=== PATIENT | female | born 1970 | race Caucasian/White ===

== ENCOUNTER → 2016-12-29 | Outpatient (REF) | payer BC | LOC: M SFHCWAGY 11:09 | PROVIDERS: ATTEND Nurse Practitioner Women's Health | DX: Z12.4 Encounter for screening for malignant neoplasm of cervix (principal); R87.610 Atypical squamous cells of undetermined significance on cytologic smear of cervix (ASC-US) ==

== ENCOUNTER → 2016-12-29 | Outpatient (CLI) | payer BC ==
--- NOTE | 2016-12-29 10:20 | REPMRS ---
Patient History The patient states she had a clinical breast exam in 12/2016. No known family history of cancer. Digital Woman Screen Mammo: December 29, 2016 - Exam #: [id number] Bilateral CC and MLO view(s) were taken. Technologist: Rachel Johnson, Technologist Prior study comparison: November 23, 2015, digital woman screen mammo performed at [facility]. November 19, 2014, digital woman screen mammo performed at [facility] to [facility]. FINDINGS: There are scattered fibroglandular densities. There has been no change in the appearance of the mammogram from the prior studies. There is a mild amount of residual fibroglandular tissue which is fairly symmetric. There is no interval development of dominant mass, architectural distortion, or clustered microcalcification suggestive of malignancy. ASSESSMENT: BI-RADS/ACR category 1 mammogram. Negative. Recommendation Routine screening mammogram in 1 year (for women over age 40). This mammogram was interpreted with the aid of an FDA-approved computer-aided dectection system. Electronically Signed By: Alec Leblanc MD 12/29/16 [id number]
== END ==
LOC: M WHC 08:08
PROVIDERS: ATTEND Nurse Practitioner Women's Health
DX: Z12.31 Encounter for screening mammogram for malignant neoplasm of breast (principal)

== ENCOUNTER → 2018-02-06 | Outpatient (REF) | payer BC | LOC: M SFHCWAGY 10:06 | DX: Z12.4 Encounter for screening for malignant neoplasm of cervix (principal) | CPT/HCPCS: G0123 ==

== ENCOUNTER → 2018-02-06 | Outpatient (CLI) | payer BC | LOC: M WHC 09:42 | DX: Z12.31 Encounter for screening mammogram for malignant neoplasm of breast (principal) ==

== ENCOUNTER → 2018-12-23 | Outpatient (REF) | payer BC | LOC: M SFHCCLAY 16:44 | PROVIDERS: ATTEND Nurse Practitioner Family | DX: R50.9 Fever, unspecified (principal) ==

== ENCOUNTER 2019-01-15 20:43 | Emergency (ER) | payer BC ==
[~2019-01-15] VITALS: Ht 167.6 cm; Wt 70.5 kg
[2019-01-15 21:44] LABS: BASO # 0.1 10^3/uL (0.0-0.2); BASO % 0.3 % (0.0-1.0); EOS # 0.3 10^3/uL (0.0-0.50); HEMATOCRIT 39.2 % (36.0-47.0); HEMOGLOBIN 13.1 g/dl (12.0-15.5); LYMPH # 1.8 10^3/uL (1.5-4.5); LYMPH % 7.3 % (24.0-44.0); MEAN CORPUSCULAR HEMOGLOBIN 30.3 pg (27.0-33.0); MEAN CORPUSCULAR HGB CONC 33.4 g/dl (32.0-36.5); MEAN CORPUSCULAR VOLUME 90.7 fl (80.0-96.0); MONO # 0.8 10^3/uL (0.0-0.8); MONO % 3.5 % (0.0-5.0); NEUTROPHILS # 20.9 10^3/uL (1.8-7.7); NEUTROPHILS % 87.2 % (36.0-66.0); PLATELET COUNT, AUTOMATED 279 10^3/uL (150-450); RED BLOOD COUNT 4.32 10^6/uL (4.00-5.40)
[2019-01-15 21:54] LABS: APPEARANCE, URINE HAZY (CLEAR); BACTERIA, URINE AUTO NEGATIVE (NEGATIVE); BILIRUBIN, URINE AUTO NEGATIVE (NEGATIVE); BLOOD, URINE BLOOD NEGATIVE (NEGATIVE); COLOR, URINE YELLOW (YELLOW); GLUCOSE, URINE (UA) AUTO NEGATIVE (NEGATIVE); KETONE, URINE AUTO NEGATIVE (NEGATIVE); LEUKOCYTE ESTERASE, URINE AUTO NEGATIVE (NEGATIVE); MUCUS, URINE SMALL (NEGATIVE); NITRITE, URINE AUTO NEGATIVE (NEGATIVE); PROTEIN, URINE AUTO NEGATIVE (NEGATIVE); RBC, URINE AUTO 2 /HPF (0-3); SPECIFIC GRAVITY URINE AUTO 1.015 (1.002-1.035); SQUAMOUS EPITHELIAL CELL UR AU 2 /HPF (0-6); UROBILINOGEN, URINE AUTO 0.2 mg/dL (0.0-2.0); WBC, URINE AUTO 1 /HPF (0-3)
[2019-01-15 22:10] LABS: ERYTHROCYTE SEDIMENTATION RATE 19 mm/hr (0-30)
[2019-01-15 22:11] LABS: ALBUMIN 3.4 GM/DL (3.2-5.2); ALT/SGPT 42 U/L (12-78); BILIRUBIN,DIRECT 0.1 MG/DL (0.0-0.2); BILIRUBIN,TOTAL 0.7 MG/DL (0.2-1.0); BLOOD UREA NITROGEN 11 MG/DL (7-18); C REACTIVE PROTEIN QUANTITATIV 8.85 MG/DL (0.00-0.30); CARBON DIOXIDE LEVEL 26 MEQ/L (21-32); CHLORIDE LEVEL 108 MEQ/L (98-107); CREATININE FOR GFR 0.89 MG/DL (0.55-1.30); GLOMERULAR FILTRATION RATE > 60.0 (>51); GLUCOSE, FASTING 95 MG/DL (70-100); POTASSIUM SERUM 3.8 MEQ/L (3.5-5.1); SODIUM LEVEL 141 MEQ/L (136-145); TOTAL PROTEIN 7.4 GM/DL (6.4-8.2)
[2019-01-15 22:20] LABS: INFLUENZA A AMPLIFICATION NEGATIVE (NEGATIVE); INFLUENZA B AMPLIFICATION NEGATIVE (NEGATIVE)
[2019-01-16] MEDS ORDERED: PROHANCE 279.3MG/ML 15ML VIAL (A9576) As Ordered ONE (00:19)
--- NOTE | 2019-01-16 00:54 | REP ---
Clinical: Systemic inflammatory response syndrome . Comparison: None . Technique: PA and lateral. Findings: The mediastinum and cardiac silhouette are normal. The lung ross are clear and without acute consolidation, effusion, or pneumothorax. The skeletal structures are intact and normal. Impression: 1. No acute cardiopulmonary process. Electronically Signed by Lowell Alston MD 01/16/2019 12:46 A
--- NOTE | 2019-01-16 01:20 | REPVR ---
EXAM: MR Thoracic Spine Without and With Contrast EXAM DATE/TIME: 01/16/2019 12:41 AM CLINICAL HISTORY: 48 years old, female; Abnormal findings; Abnormal lab test; Elevated wbc; Additional info: Back pain, elev wbc/crp/esr, eval for discitis TECHNIQUE: Multiplanar MRI of the thoracic spine was performed utilizing a variety of sequences prior to and following the uncomplicated administration of intravenous contrast material. CONTRAST: Contrast Material: 14 ml of prohance; Contrast Route: iv COMPARISON: No relevant prior studies available. FINDINGS: Normal thoracic kyphosis. Alignment anatomic. T7, T8 and T9 vertebral body hemangiomata. Bone marrow signal otherwise normal. No MR evidence of acute fracture, dislocation or subluxation. Vertebral body heights maintained. No abnormal signal within the visualized spinal cord. No fluid collection or soft tissue mass. No abnormal enhancement. Mild multilevel spondylosis. Shallow left parasagittal disc protrusion at T6-T7. Shallow right paracentral disc protrusion at T7-T8. Shallow left parasagittal disc protrusion at T9-T10. No significant spinal canal or neural foraminal stenosis. IMPRESSION: 1. No MR evidence of acute osteomyelitis discitis. 2. Mild multilevel spondylosis and degenerative disc disease. 3. Additional findings, as above. Electronically signed by: Darin Gonzalez On 01/16/2019 01:19:36 AM
--- NOTE | 2019-01-16 01:23 | REPVR ---
EXAM: MR Lumbar Spine Without and With Contrast. EXAM DATE/TIME: 01/16/2019 12:41 AM CLINICAL HISTORY: 48 years old, female; Abnormal findings; Abnormal lab test; Elevated wbc; Additional info: Back pain, elev wbc/crp/esr, eval for discitis TECHNIQUE: Multiplanar MRI of the lumbar spine was performed utilizing a variety of sequences prior to and following the uncomplicated administration of intravenous contrast material. CONTRAST: Contrast Material: 14 ml of prohance; Contrast Route: IV COMPARISON: No relevant prior studies available. FINDINGS: Normal lumbar lordosis. Alignment anatomic. L3 and L4 vertebral body hemangiomata. Bone marrow signal otherwise normal. No MR evidence of acute fracture, dislocation or subluxation. Vertebral body heights maintained. Conus terminates at approximately the L1 level. No abnormal signal within the visualized spinal cord. No fluid collection or soft tissue mass. No abnormal enhancement. Intervertebral disc spaces preserved. No significant spinal canal or neural foraminal stenosis. IMPRESSION: 1. No MR evidence of acute osteomyelitis discitis. 2. Additional findings, as above. Electronically signed by: Darin Gonzalez On 01/16/2019 01:23:06 AM
--- NOTE | 2019-01-16 01:30 | REPVR ---
EXAM: MR Cervical Spine Without and With Contrast EXAM DATE/TIME: 01/16/2019 12:41 AM CLINICAL HISTORY: 48 years old, female; Abnormal findings; Abnormal lab test; Other: Elevated wbc; Additional info: Back pain, elev wbc/crp/esr, eval for discitis TECHNIQUE: Multiplanar MRI of the cervical spine was performed utilizing a variety of sequences prior to and following the uncomplicated administration of intravenous contrast material. CONTRAST: Contrast Material: 14 ml of PROHANCE; Contrast Route: IV COMPARISON: No relevant prior studies available. FINDINGS: Slight reversal of the normal cervical lordosis. Alignment anatomic. Bone marrow signal normal. No MR evidence of acute fracture, dislocation or subluxation. Vertebral body heights maintained. No abnormal signal within the visualized spinal cord. No fluid collection or soft tissue mass. No abnormal enhancement. Mild multilevel spondylosis and degenerative disc disease, most pronounced at C5-C6, where there is a shallow disc ridge complex, mildly effacing the ventral thecal sac. No significant spinal canal or neural foraminal stenosis. IMPRESSION: 1. No MR evidence of acute osteomyelitis discitis. 2. Additional findings, as above. Electronically signed by: Darin Gonzalez On 01/16/2019 01:29:59 AM
[2019-01-16 02:01] VITALS: BP 128/82
== END 2019-01-16 02:03 | disposition home or self-care (01) ==
LOC: M ED 20:43
DX: D72.829 Elevated white blood cell count, unspecified (principal)
CPT/HCPCS: 36415; 71046; 72156; 72157; 72158; 80048; 80076; 81001; 83605; 85025; 85652; 86140; 87040; 87086; 87502; 93041; 94760; 99285; A9576

== ENCOUNTER → 2019-01-15 | Outpatient (REF) | payer BC ==
[2019-01-15 18:19] LABS: ALBUMIN 3.8 GM/DL (3.2-5.2); ALT/SGPT 31 U/L (12-78); BLOOD UREA NITROGEN 11 MG/DL (7-18); CALCIUM LEVEL 8.9 MG/DL (8.5-10.1); CARBON DIOXIDE LEVEL 26 MEQ/L (21-32); CHLORIDE LEVEL 103 MEQ/L (98-107); CREATININE FOR GFR 0.87 MG/DL (0.55-1.30); GLOMERULAR FILTRATION RATE > 60.0 (>51); GLUCOSE, FASTING 95 MG/DL (70-100); POTASSIUM SERUM 3.7 MEQ/L (3.5-5.1); SODIUM LEVEL 137 MEQ/L (136-145); TOTAL PROTEIN 7.8 GM/DL (6.4-8.2)
[2019-01-15 18:48] LABS: HEMATOCRIT 40.2 % (36.0-47.0); HEMOGLOBIN 13.3 g/dl (12.0-15.5); MEAN CORPUSCULAR HEMOGLOBIN 29.9 pg (27.0-33.0); MEAN CORPUSCULAR HGB CONC 33.1 g/dl (32.0-36.5); MEAN CORPUSCULAR VOLUME 90.3 fl (80.0-96.0); PLATELET COUNT, AUTOMATED 300 10^3/uL (150-450); RED BLOOD COUNT 4.45 10^6/uL (4.00-5.40)
[2019-01-15 19:23] LABS: WHITE BLOOD COUNT 30.6 10^3/uL (4.0-10.0)
[2019-01-15 19:51] LABS: LYMPHOCYTES 8 % (16-52); MONOCYTES 7 % (0-8); NEUTROPHILS 78 % (35-75); PLATELET ESTIMATE NORMAL (NORMAL)
== END ==
LOC: M SFHCCLAY 11:32
PROVIDERS: ATTEND Nurse Practitioner Family
DX: R11.0 Nausea (principal)

== ENCOUNTER → 2019-01-17 | Outpatient (CLI) | payer BC ==
[~2019-01-17] MED LIST: GASTROGRAFIN SOLUTION 30ML (Q9963) As Ordered ONE; ISOVUE-370 76% 100ML VIAL (Q9967) As Ordered ONE
--- NOTE | 2019-01-17 17:09 | REP ---
CT ABDOMEN AND PELVIS WITH ORAL AND IV CONTRAST: TECHNIQUE: Axial contrast enhanced images from the lung bases to the pubic symphysis using 100 mL Isovue 370 intravenous contrast material with multiplanar reformations. In the visualized lung bases, there are tiny bilateral pleural effusions with some minimal fibrotic changes. The liver, gallbladder, spleen, adrenals, pancreas and kidneys are unremarkable. There is no hydronephrosis bilaterally. There is no abdominal aortic aneurysm. There is no adenopathy. There is no free air or free fluid. No bowel thickening is seen. There is no evidence of appendicitis. In the pelvis, there is a dominant follicle of the left ovary which measures 1.8 cm in diameter. No other pelvic mass is seen. Urinary bladder is mildly distended and grossly unremarkable. No anterior abdominal wall defect is seen. The sacroiliac joints appear fused. IMPRESSION: Tiny bilateral pleural effusions. No free air or free fluid in the abdomen. No adenopathy or bowel inflammation. There is a dominant follicle of the left ovary 1.8 cm in diameter. There are degenerative changes of the spine and the sacroiliac joints are fused. Electronically Signed by Alec Leblanc MD 01/20/2019 12:12 P
== END ==
LOC: M RAD 14:24
PROVIDERS: ATTEND Family Medicine
DX: D72.825 Bandemia (principal); R19.7 Diarrhea, unspecified; R11.0 Nausea; J90 Pleural effusion, not elsewhere classified
CPT/HCPCS: 74177; Q9963; Q9967

== ENCOUNTER → 2019-01-21 | Outpatient (REF) | payer BC ==
[2019-01-21 11:35] LABS: BASO # 0.1 10^3/uL (0.0-0.2); BASO % 0.8 % (0.0-1.0); EOS # 0.3 10^3/uL (0.0-0.50); EOS % 3.9 % (0.0-3.0); HEMATOCRIT 39.9 % (36.0-47.0); LYMPH # 1.7 10^3/uL (1.5-4.5); LYMPH % 20.2 % (24.0-44.0); MEAN CORPUSCULAR HEMOGLOBIN 29.7 pg (27.0-33.0); MEAN CORPUSCULAR HGB CONC 32.6 g/dl (32.0-36.5); MEAN CORPUSCULAR VOLUME 91.3 fl (80.0-96.0); MONO # 0.6 10^3/uL (0.0-0.8); MONO % 7.2 % (0.0-5.0); NEUTROPHILS # 5.6 10^3/uL (1.8-7.7); NEUTROPHILS % 67.5 % (36.0-66.0); PLATELET COUNT, AUTOMATED 307 10^3/uL (150-450); RED BLOOD COUNT 4.37 10^6/uL (4.00-5.40); WHITE BLOOD COUNT 8.3 10^3/uL (4.0-10.0)
[2019-01-21 11:37] LABS: BLOOD UREA NITROGEN 9 MG/DL (7-18); CALCIUM LEVEL 8.8 MG/DL (8.5-10.1); CARBON DIOXIDE LEVEL 27 MEQ/L (21-32); CHLORIDE LEVEL 105 MEQ/L (98-107); CREATININE FOR GFR 0.85 MG/DL (0.55-1.30); GLOMERULAR FILTRATION RATE > 60.0 (>51); GLUCOSE, FASTING 94 MG/DL (70-100); POTASSIUM SERUM 3.9 MEQ/L (3.5-5.1); SODIUM LEVEL 139 MEQ/L (136-145)
== END ==
LOC: M SFHCCLAY 07:33
PROVIDERS: ATTEND Nurse Practitioner Family
DX: D72.825 Bandemia (principal)

== ENCOUNTER → 2019-02-18 | Outpatient (CLI) | payer BC ==
--- NOTE | 2019-02-19 01:58 | REP ---
Clinical: Bronchitis . Comparison: None . Technique: PA and lateral. Findings: The mediastinum and cardiac silhouette are normal. The lung ross are clear and without acute consolidation, effusion, or pneumothorax. The skeletal structures are intact and normal. Impression: 1. No acute cardiopulmonary process.
== END ==
LOC: M CLY 14:20
PROVIDERS: ATTEND Family Medicine
DX: Z87.09 Personal history of other diseases of the respiratory system (principal)

== ENCOUNTER → 2019-03-10 | Outpatient (CLI) | payer BC ==
--- NOTE | 2019-03-10 10:31 | REPMRS ---
Patient History The patient states she had a clinical breast exam in 02/2019. No known family history of cancer. 3D TOMOSYNTHESIS WAS PERFORMED. Digital Woman Screen Mammo: March 10, 2019 - Exam #: [id number] Bilateral CC and MLO view(s) were taken. Technologist: Rachel Johnson, Technologist Prior study comparison: February 06, 2018, digital woman screen mammo performed at [facility]. December 29, 2016, digital woman screen mammo performed at [facility]. FINDINGS: The breast tissue is heterogeneously dense. This may lower the sensitivity of mammography. There has been no change in the appearance of the mammogram from the prior studies. There is a moderate amount of residual fibroglandular tissue which is fairly symmetric. There is no interval development of dominant mass, areas of architectural distortion, or clustered microcalcification typical of malignancy. Assessment: BI-RADS/ACR category 1 mammogram. Negative Mammogram. Recommendation Routine screening mammogram in 1 year (for women over age 40). This mammogram was interpreted with the aid of an FDA-approved computer-aided dectection system. Electronically Signed By: Alec Leblanc MD 03/10/19 [id number]
== END ==
LOC: M WHC 09:18
PROVIDERS: ATTEND Nurse Practitioner Women's Health
DX: Z12.31 Encounter for screening mammogram for malignant neoplasm of breast (principal)

== ENCOUNTER → 2021-03-23 | Outpatient (CLI) | payer BC ==
--- NOTE | 2021-03-23 09:29 | REPMRS ---
Patient History The patient states she has not had a clinical breast exam in over a year. No known family history of cancer. No Hormone Replacement Therapy Patient states no breast complaints today. Patient has signed MRS History Sheet. Digital Woman Screen Mammo: March 23, 2021 - Exam #: [id number] Bilateral CC and MLO view(s) were taken. Technologist: Rachel Johnson, Technologist Prior study comparison: March 10, 2019, bilateral digital woman screen mammo performed at [facility]. February 06, 2018, digital woman screen mammo performed at [facility]. FINDINGS: There are scattered fibroglandular densities. Screening. Digital screening (2D) mammography was performed bilaterally in the CC and MLO projections. Additionally, breast tomosynthesis (3D mammography) was performed bilaterally in the CC and MLO projections. Todays exam was compared to the prior exams. By history, the patient has no complaints of a palpable breast abnormality or other significant breast complaints. The breasts are unchanged in size and shape. There are no lisseth-soft tissue densities or spiculated masses. There is no internal architectural distortion. There are no suspicious lisseth-calcific clusters. Skin thickening or nipple retraction is not present. IMPRESSION: BI-RADS Category 2- Benign Findings. There is no evidence of malignant alteration of the breasts. Followup examination recommended in one year. The Volpara volumetric breast density category is B, there are scattered areas of fibroglandular density. [facility] FDA approved [facility] aided detection system for mammography. The lifetime Tyrer-Cuzick score is 10.3% Negative x-ray reports should not delay surgical consultation if a dominant or clinically suspicious mass is present. Not all breast cancers can be identified by mammography. Therefore, we recommend that you continue to perform regular breast self-examination and physical examination and then promptly contact your physician of any concerns or changes. Adenosis and dense breasts may obscure an underlying neoplasm. Assessment: BI-RADS/ACR category 2 mammogram. Benign Findings. Recommendation Routine screening mammogram of both breasts in 1 year. Electronically Signed By: Leoncio Marcos DO 03/23/21 [id number]
== END ==
LOC: M WHC 06:19
PROVIDERS: ATTEND Nurse Practitioner Women's Health
DX: Z12.31 Encounter for screening mammogram for malignant neoplasm of breast (principal)

== ENCOUNTER → 2022-05-10 | Outpatient (REF) | payer BC ==
[2022-05-10 11:36] LABS: BASO # 0.1 10^3/uL (0.0-0.2); BASO % 0.7 % (0.0-1.0); EOS # 0.2 10^3/uL (0.0-0.5); HEMATOCRIT 42.5 % (36.0-47.0); HEMOGLOBIN 13.9 g/dl (12.0-15.5); LYMPH # 2.4 10^3/uL (1.5-5.0); LYMPH % 36.3 % (24.0-44.0); MEAN CORPUSCULAR HEMOGLOBIN 29.3 pg (27.0-33.0); MEAN CORPUSCULAR HGB CONC 32.7 g/dl (32.0-36.5); MEAN CORPUSCULAR VOLUME 89.5 fl (80.0-96.0); MONO # 0.5 10^3/uL (0.0-0.8); MONO % 7.5 % (2.0-8.0); NEUTROPHILS # 3.5 10^3/uL (1.5-8.5); NEUTROPHILS % 52.4 % (36.0-66.0); PLATELET COUNT, AUTOMATED 275 10^3/uL (150-450); RED BLOOD COUNT 4.75 10^6/uL (4.00-5.40); WHITE BLOOD COUNT 6.7 10^3/uL (4.0-10.0)
[2022-05-10 12:08] LABS: ALBUMIN 3.5 GM/DL (3.2-5.2); ALT/SGPT 21 U/L (12-78); BILIRUBIN,TOTAL 0.6 MG/DL (0.2-1.0); BLOOD UREA NITROGEN 12 MG/DL (7-18); CARBON DIOXIDE LEVEL 31 MEQ/L (21-32); CHLORIDE LEVEL 106 MEQ/L (98-107); CHOLESTEROL LEVEL 250 MG/DL (<200); CHOLESTEROL RISK RATIO 5.681 (<5); CREATININE FOR GFR 0.82 MG/DL (0.55-1.30); GLOMERULAR FILTRATION RATE > 60.0 (>51); GLUCOSE, FASTING 100 MG/DL (70-100); HDL CHOLESTEROL 44 MG/DL (>40); LDL CHOLESTEROL 172 MG/DL (<100); NON-HDL-C 206 MG/DL; POTASSIUM SERUM 4.4 MEQ/L (3.5-5.1); SODIUM LEVEL 141 MEQ/L (136-145); TOTAL PROTEIN 7.3 GM/DL (6.4-8.2); TRIGLYCERIDES LEVEL 171 MG/DL (<150)
[2022-05-12 13:54] LABS: ALBUMIN 4.02 GM/DL (3.29-5.55); ALPHA-1-GLOBULIN % 3.9 % (2.9-4.9); ALPHA-1-GLOBULINS 0.28 GM/DL (0.17-0.41); ALPHA-2-GLOBULINS 0.78 GM/DL (0.42-0.99); ALPHA-2-GLOBULINS % 10.7 % (7.1-11.8); BETA-1-GLOBULINS 0.39 GM/DL (0.28-0.60); BETA-1-GLOBULINS % 5.4 % (4.7-7.2); BETA-2-GLOBULINS % 5.5 % (3.2-6.5); GAMMA GLOBULIN % 19.5 % (11.1-18.8); GAMMA GLOBULINS 1.42 GM/DL (0.65-1.58)
[2022-05-12 13:55] LABS: TOTAL PROTEIN 7.3 GM/DL (6.4-8.2)
== END ==
LOC: M SFHCCLAY 07:13
PROVIDERS: ATTEND Family Medicine
DX: Z00.00 Encounter for general adult medical examination without abnormal findings (principal); Z12.11 Encounter for screening for malignant neoplasm of colon; D89.2 Hypergammaglobulinemia, unspecified; R09.82 Postnasal drip; M67.40 Ganglion, unspecified site; J02.9 Acute pharyngitis, unspecified

== ENCOUNTER → 2022-05-31 | Outpatient (REF) | payer BC | LOC: M PLALAB 14:14 | PROVIDERS: ATTEND Advanced Practice Midwife | DX: Z53.9 Procedure and treatment not carried out, unspecified reason (principal) ==

== ENCOUNTER → 2022-06-05 | Outpatient (REF) | payer BC | LOC: M SFHCWAGY 17:10 | PROVIDERS: ATTEND Advanced Practice Midwife | DX: Z12.4 Encounter for screening for malignant neoplasm of cervix (principal); R87.610 Atypical squamous cells of undetermined significance on cytologic smear of cervix (ASC-US) | CPT/HCPCS: 87624; G0123 ==

== ENCOUNTER → 2022-06-05 | Outpatient (CLI) | payer BC | LOC: M WHC 13:22 | PROVIDERS: ATTEND Advanced Practice Midwife | DX: Z12.31 Encounter for screening mammogram for malignant neoplasm of breast (principal) ==

== ENCOUNTER → 2022-10-10 | Outpatient (CLI) | payer BC | LOC: M PLAIMG 09:08 | PROVIDERS: ATTEND Family Medicine | DX: R09.89 Other specified symptoms and signs involving the circulatory and respiratory systems (principal); Z82.49 Family history of ischemic heart disease and other diseases of the circulatory system ==

== ENCOUNTER → 2022-11-17 | Outpatient (REF) | payer BC ==
[2022-11-17 19:10] LABS: CORTISOL AM 5.4 UG/DL (4.3-22.4)
[2022-11-17 19:14] LABS: ESTRADIOL < 19.0 PG/ML; FOLLICLE STIMULATING HORMONE 53.2 mIU/ML; THYROID STIMULATING HORMONE 0.996 uIU/ML (0.55-4.78)
[2022-11-17 19:15] LABS: FREE T4 1.06 NG/DL (0.89-1.76); LUTEINIZING HORMONE 22.7 mIU/ML; PROGESTERONE 0.21 NG/ML
[2022-11-21 20:07] LABS: ESTRONE SERUM 21 pg/mL (.); SEX HORMONE BINDING GLOBULIN 79.9 nmol/L (17.3-125.0); TESTOSTERONE FREE (DIRECT) 0.7 pg/mL (0.0-4.2)
== END ==
LOC: M LABDRAWC 17:10
PROVIDERS: ATTEND Obstetrics & Gynecology
DX: N95.1 Menopausal and female climacteric states (principal)

== ENCOUNTER → 2023-04-04 | Outpatient (REF) | payer BC ==
[2023-04-04 12:15] LABS: PROGESTERONE < 0.21 NG/ML
[2023-04-04 12:16] LABS: FOLLICLE STIMULATING HORMONE 30.3 mIU/ML; LUTEINIZING HORMONE 21.8 mIU/ML
[2023-04-04 12:17] LABS: ESTRADIOL 46.8 PG/ML
[2023-04-05 18:08] LABS: TESTOSTERONE FREE (DIRECT) 2.7 pg/mL (0.0-4.2)
== END ==
LOC: M LABDRAWC 11:05
PROVIDERS: ATTEND Obstetrics & Gynecology
DX: N95.1 Menopausal and female climacteric states (principal); E34.9 Endocrine disorder, unspecified; F52.0 Hypoactive sexual desire disorder

== ENCOUNTER → 2023-05-01 | Outpatient (REF) | payer BC ==
[~2023-05-01] MED LIST changes: -GASTROGRAFIN SOLUTION 30ML (Q9963) As Ordered ONE; -ISOVUE-370 76% 100ML VIAL (Q9967) As Ordered ONE; +PERC5TAB12 PO
[2023-05-01 12:07] LABS: BASO # 0.1 10^3/uL (0.0-0.2); BASO % 0.7 % (0.0-1.0); EOS # 0.2 10^3/uL (0.0-0.5); EOS % 2.3 % (0.0-3.0); HEMATOCRIT 43.2 % (36.0-47.0); HEMOGLOBIN 14.2 g/dl (12.0-15.5); LYMPH # 2.1 10^3/uL (1.5-5.0); LYMPH % 28.4 % (24.0-44.0); MEAN CORPUSCULAR HEMOGLOBIN 29.7 pg (27.0-33.0); MEAN CORPUSCULAR HGB CONC 32.9 g/dl (32.0-36.5); MEAN CORPUSCULAR VOLUME 90.4 fl (80.0-96.0); MONO # 0.5 10^3/uL (0.0-0.8); MONO % 6.7 % (2.0-8.0); NEUTROPHILS # 4.5 10^3/uL (1.5-8.5); NEUTROPHILS % 61.8 % (36.0-66.0); PLATELET COUNT, AUTOMATED 276 10^3/uL (150-450); RED BLOOD COUNT 4.78 10^6/uL (4.00-5.40); WHITE BLOOD COUNT 7.4 10^3/uL (4.0-10.0)
[2023-05-01 12:33] LABS: ALBUMIN 3.5 G/DL (3.2-5.2); ALKALINE PHOSPHATASE 60 U/L (46-116); ALT/SGPT 10 U/L (7.0-40); AST/SGOT < 8 U/L (<34); BILIRUBIN,TOTAL 0.6 MG/DL (0.3-1.2); BLOOD UREA NITROGEN 11 MG/DL (9-23); CALCIUM LEVEL 8.3 MG/DL (8.5-10.1); CARBON DIOXIDE LEVEL 27 MMOL/L (20-31); CHLORIDE LEVEL 105 MMOL/L (98-107); CHOLESTEROL LEVEL 225 MG/DL (<200); CHOLESTEROL RISK RATIO 5.31 (<5); CREATININE FOR GFR 0.77 MG/DL (0.55-1.30); GLOMERULAR FILTRATION RATE > 60.0 (>51); GLUCOSE, FASTING 87 MG/DL (60-100); HDL CHOLESTEROL 42.3 MG/DL (>40); LDL CHOLESTEROL 158.3 MG/DL (<100); NON-HDL-C 182.7 MG/DL; POTASSIUM SERUM 4.3 MMOL/L (3.5-5.1); SODIUM LEVEL 138 MMOL/L (136-145); TOTAL PROTEIN 6.6 G/DL (5.7-8.2); TRIGLYCERIDES LEVEL 122 MG/DL (<150)
== END ==
LOC: M SFHCCLAY 07:55
PROVIDERS: ATTEND Family Medicine
DX: M67.449 Ganglion, unspecified hand (principal); E78.00 Pure hypercholesterolemia, unspecified

== ENCOUNTER → 2023-05-02 | Outpatient (CLI) | payer BC | LOC: M SOG 11:42 | PROVIDERS: ATTEND Physician Assistant | DX: M79.645 Pain in left finger(s) (principal) ==

== ENCOUNTER 2023-05-04 06:22 | Day surgery (SDC) | payer BC ==
[~2023-05-04] VITALS: Ht 167.6 cm; Wt 75.7 kg
[2023-05-04] MEDS ORDERED: SODIUM BICARBONATE 8.4% INJ 50MEQ 50ML VIAL As Ordered ONE (07:27)
[2023-05-04] MEDS ORDERED: LIDOCAINE 1% MDV 20ML VIAL As Ordered ONE (07:27)
[2023-05-04] MEDS ORDERED: SODIUM BICARBONATE 8.4% INJ 50MEQ 50ML VIAL XX ONE (07:35)
[2023-05-04] MEDS ORDERED: LIDOCAINE 1% MDV 20ML VIAL XX ONE (07:40)
[2023-05-04 08:20] VITALS: BP 160/87; TEMP 97.3; O2SAT 100
[2023-05-04] MEDS ORDERED: PERC5TAB12 PO (08:48)
== END 2023-05-04 08:30 | disposition home or self-care (01) ==
LOC: M SDC 06:22
PROVIDERS: ATTEND Orthopaedic Surgery Hand Surgery
DX: M67.442 Ganglion, left hand (principal)

== ENCOUNTER → 2023-07-25 | Outpatient (REF) | payer BC ==
[2023-07-25 14:20] LABS: LUTEINIZING HORMONE 8.2 mIU/ML
[2023-07-25 14:21] LABS: ESTRADIOL 93.5 PG/ML
[2023-07-25 14:24] LABS: PROGESTERONE < 0.21 NG/ML
[2023-07-26 17:09] LABS: TESTOSTERONE FREE (DIRECT) 3.7 pg/mL (0.0-4.2)
== END ==
LOC: M LABDRAWC 11:30
PROVIDERS: ATTEND Obstetrics & Gynecology
DX: N95.1 Menopausal and female climacteric states (principal); E34.9 Endocrine disorder, unspecified; F52.0 Hypoactive sexual desire disorder

== ENCOUNTER → 2023-08-28 | Outpatient (CLI) | payer BC | LOC: M WHC 08:23 | PROVIDERS: ATTEND Advanced Practice Midwife | DX: Z12.31 Encounter for screening mammogram for malignant neoplasm of breast (principal) ==

== ENCOUNTER → 2024-01-28 | Outpatient (REF) | payer BC ==
[2024-01-28 18:06] LABS: BASO % 0.7 % (0.0-1.0); EOS # 0.1 10^3/uL (0.0-0.5); EOS % 1.9 % (0.0-3.0); HEMATOCRIT 40.7 % (36.0-47.0); HEMOGLOBIN 13.5 g/dl (12.0-15.5); LYMPH # 1.9 10^3/uL (1.5-5.0); LYMPH % 33.4 % (24.0-44.0); MEAN CORPUSCULAR HEMOGLOBIN 30.2 pg (27.0-33.0); MEAN CORPUSCULAR HGB CONC 33.2 g/dl (32.0-36.5); MEAN CORPUSCULAR VOLUME 91.1 fl (80.0-96.0); MONO # 0.5 10^3/uL (0.0-0.8); MONO % 8.2 % (2.0-8.0); NEUTROPHILS # 3.2 10^3/uL (1.5-8.5); NEUTROPHILS % 55.6 % (36.0-66.0); PLATELET COUNT, AUTOMATED 266 10^3/uL (150-450); RED BLOOD COUNT 4.47 10^6/uL (4.00-5.40); WHITE BLOOD COUNT 5.8 10^3/uL (4.0-10.0)
[2024-01-28 18:30] LABS: FREE T4 0.99 NG/DL (0.89-1.76); HEMOGLOBIN A1c 5.5 % (4.0-6.0)
[2024-01-28 18:32] LABS: ALBUMIN 3.7 G/DL (3.2-5.2); ALKALINE PHOSPHATASE 61 U/L (46-116); ALT/SGPT 18 U/L (7.0-40); AST/SGOT 13 U/L (<34); BILIRUBIN,TOTAL 0.6 MG/DL (0.3-1.2); BLOOD UREA NITROGEN 14 MG/DL (9-23); CALCIUM LEVEL 8.6 MG/DL (8.5-10.1); CARBON DIOXIDE LEVEL 28 MMOL/L (20-31); CHLORIDE LEVEL 105 MMOL/L (98-107); CHOLESTEROL LEVEL 217 MG/DL (<200); CHOLESTEROL RISK RATIO 6.01 (<5); CREATININE FOR GFR 0.68 MG/DL (0.55-1.30); GLOMERULAR FILTRATION RATE > 60.0 (>51); GLUCOSE, FASTING 83 MG/DL (60-100); HDL CHOLESTEROL 36.1 MG/DL (>40); LDL CHOLESTEROL 161.3 MG/DL (<100); NON-HDL-C 180.9 MG/DL; POTASSIUM SERUM 4.1 MMOL/L (3.5-5.1); SODIUM LEVEL 138 MMOL/L (136-145); TRIGLYCERIDES LEVEL 98 MG/DL (<150)
== END ==
LOC: M SFHCCLAY 10:18
PROVIDERS: ATTEND Nurse Practitioner Family
DX: B37.31 Acute candidiasis of vulva and vagina (principal); Z13.1 Encounter for screening for diabetes mellitus; Z13.29 Encounter for screening for other suspected endocrine disorder; Z13.220 Encounter for screening for lipoid disorders

== ENCOUNTER → 2024-02-05 | Outpatient (REF) | payer BC ==
[2024-02-05 12:57] LABS: FOLLICLE STIMULATING HORMONE 14.2 mIU/ML; LUTEINIZING HORMONE 7.3 mIU/ML
[2024-02-05 12:58] LABS: ESTRADIOL 79.8 PG/ML; PROGESTERONE < 0.21 NG/ML
[2024-02-06 08:11] LABS: TESTOSTERONE FREE (DIRECT) 2.4 pg/mL (0.0-4.2)
== END ==
LOC: M LABDRAWC 11:41
PROVIDERS: ATTEND Obstetrics & Gynecology
DX: N95.1 Menopausal and female climacteric states (principal); E34.9 Endocrine disorder, unspecified; F52.0 Hypoactive sexual desire disorder

== ENCOUNTER → 2024-07-04 | Outpatient (REF) | payer BC ==
[2024-07-04 11:27] LABS: BASO # 0.1 10^3/uL (0.0-0.2); BASO % 0.8 % (0.0-1.0); EOS # 0.2 10^3/uL (0.0-0.5); EOS % 2.6 % (0.0-3.0); HEMATOCRIT 42.2 % (36.0-47.0); HEMOGLOBIN 14.1 g/dl (12.0-15.5); LYMPH % 30.3 % (24.0-44.0); MEAN CORPUSCULAR HGB CONC 33.4 g/dl (32.0-36.5); MEAN CORPUSCULAR VOLUME 89.8 fl (80.0-96.0); MONO # 0.4 10^3/uL (0.0-0.8); MONO % 6.6 % (2.0-8.0); NEUTROPHILS # 3.9 10^3/uL (1.5-8.5); NEUTROPHILS % 59.4 % (36.0-66.0); PLATELET COUNT, AUTOMATED 260 10^3/uL (150-450); WHITE BLOOD COUNT 6.5 10^3/uL (4.0-10.0)
[2024-07-04 12:04] LABS: ALBUMIN 3.5 G/DL (3.2-5.2); ALKALINE PHOSPHATASE 67 U/L (46-116); ALT/SGPT 17 U/L (7.0-40); AST/SGOT 13 U/L (<34); BILIRUBIN,TOTAL 0.6 MG/DL (0.3-1.2); BLOOD UREA NITROGEN 13 MG/DL (9-23); CALCIUM LEVEL 8.7 MG/DL (8.5-10.1); CARBON DIOXIDE LEVEL 27 MMOL/L (20-31); CHLORIDE LEVEL 110 MMOL/L (98-107); CHOLESTEROL LEVEL 242 MG/DL (<200); CHOLESTEROL RISK RATIO 5.11 (<5); CREATININE FOR GFR 0.74 MG/DL (0.55-1.30); GLOMERULAR FILTRATION RATE > 60.0 (>51); GLUCOSE, FASTING 88 MG/DL (60-100); HDL CHOLESTEROL 47.3 MG/DL (>40); LDL CHOLESTEROL 175.1 MG/DL (<100); NON-HDL-C 194.7 MG/DL; POTASSIUM SERUM 4.1 MMOL/L (3.5-5.1); SODIUM LEVEL 137 MMOL/L (136-145); TRIGLYCERIDES LEVEL 98 MG/DL (<150)
[2024-07-04 12:05] LABS: HEPATITIS B SURFACE ANTIBODY NEGATIVE (POSITIVE)
[2024-07-04 12:18] LABS: HEPATITIS B SURFACE ANTIGEN NEGATIVE (NEGATIVE)
[2024-07-04 12:39] LABS: HEPATITIS C VIRUS ABY INDEX 0.04 INDEX (<0.8)
== END ==
LOC: M LABDRAWC 10:57
PROVIDERS: ATTEND Physician Assistant
DX: Z79.899 Other long term (current) drug therapy (principal)

== ENCOUNTER → 2024-07-07 | Outpatient (REF) | payer BC | LOC: M LABDRAWC 11:33 | PROVIDERS: ATTEND Physician Assistant | DX: Z79.899 Other long term (current) drug therapy (principal) ==

== ENCOUNTER → 2024-10-27 | Outpatient (REF) | payer BC ==
[2024-10-27 18:55] LABS: BASO # 0.1 10^3/uL (0.0-0.2); BASO % 0.9 % (0.0-1.0); EOS # 0.1 10^3/uL (0.0-0.5); HEMATOCRIT 40.2 % (36.0-47.0); HEMOGLOBIN 13.4 g/dl (12.0-15.5); LYMPH # 1.8 10^3/uL (1.5-5.0); LYMPH % 31.2 % (24.0-44.0); MEAN CORPUSCULAR HEMOGLOBIN 30.5 pg (27.0-33.0); MEAN CORPUSCULAR HGB CONC 33.3 g/dl (32.0-36.5); MEAN CORPUSCULAR VOLUME 91.4 fl (80.0-96.0); MONO # 0.4 10^3/uL (0.0-0.8); MONO % 7.3 % (2.0-8.0); NEUTROPHILS # 3.4 10^3/uL (1.5-8.5); NEUTROPHILS % 58.4 % (36.0-66.0); PLATELET COUNT, AUTOMATED 266 10^3/uL (150-450); WHITE BLOOD COUNT 5.9 10^3/uL (4.0-10.0)
[2024-10-27 19:14] LABS: ERYTHROCYTE SEDIMENTATION RATE 13 mm/hr (0-30)
[2024-10-27 19:23] LABS: C REACTIVE PROTEIN QUANTITATIV < 0.50 MG/DL (<1.0)
[2024-10-27 19:25] LABS: RHEUMATOID FACTOR QUANT 17.5 IU/ML (<14)
== END ==
LOC: M LABDRAWC 16:41
PROVIDERS: ATTEND Orthopaedic Surgery
DX: A69.23 Arthritis due to Lyme disease (principal); M17.11 Unilateral primary osteoarthritis, right knee

== ENCOUNTER → 2024-11-06 | Outpatient (REF) | payer BC | LOC: M SFHCCLAY 15:03 | PROVIDERS: ATTEND Physician Assistant | DX: Z53.9 Procedure and treatment not carried out, unspecified reason (principal) ==

== ENCOUNTER → 2024-12-01 | Outpatient (CLI) | payer BC | LOC: M WHC 08:49 | PROVIDERS: ATTEND Advanced Practice Midwife | DX: Z12.31 Encounter for screening mammogram for malignant neoplasm of breast (principal) ==

== ENCOUNTER → 2024-12-04 | Outpatient (REF) | payer BC ==
[2024-12-04 15:46] LABS: ALBUMIN 3.5 G/DL (3.2-5.2); ALKALINE PHOSPHATASE 57 U/L (35-104); ALT/SGPT 24 U/L (7.0-40); AST/SGOT 13 U/L (<34); BILIRUBIN,TOTAL 0.6 MG/DL (0.3-1.2); BLOOD UREA NITROGEN 14 MG/DL (9-23); CARBON DIOXIDE LEVEL 28 MMOL/L (20-31); CHLORIDE LEVEL 106 MMOL/L (98-107); CHOLESTEROL LEVEL 276 MG/DL (<200); CHOLESTEROL RISK RATIO 5.66 (<5); CREATININE FOR GFR 0.72 MG/DL (0.55-1.30); GLOMERULAR FILTRATION RATE > 60.0 (>51); GLUCOSE, FASTING 91 MG/DL (60-100); HDL CHOLESTEROL 48.7 MG/DL (>40); LDL CHOLESTEROL 204.3 MG/DL (<100); NON-HDL-C 227.3 MG/DL; POTASSIUM SERUM 3.9 MMOL/L (3.5-5.1); SODIUM LEVEL 141 MMOL/L (136-145); TOTAL PROTEIN 7.3 G/DL (5.7-8.2); TRIGLYCERIDES LEVEL 115 MG/DL (<150)
[2024-12-04 15:52] LABS: BASO # 0.1 10^3/uL (0.0-0.2); BASO % 0.9 % (0.0-1.0); EOS # 0.2 10^3/uL (0.0-0.5); EOS % 2.8 % (0.0-3.0); HEMATOCRIT 39.3 % (36.0-47.0); LYMPH # 1.7 10^3/uL (1.5-5.0); MEAN CORPUSCULAR HEMOGLOBIN 30.6 pg (27.0-33.0); MEAN CORPUSCULAR HGB CONC 33.1 g/dl (32.0-36.5); MEAN CORPUSCULAR VOLUME 92.5 fl (80.0-96.0); MONO # 0.4 10^3/uL (0.0-0.8); MONO % 6.9 % (2.0-8.0); NEUTROPHILS # 3.4 10^3/uL (1.5-8.5); NEUTROPHILS % 59.2 % (36.0-66.0); PLATELET COUNT, AUTOMATED 231 10^3/uL (150-450); RED BLOOD COUNT 4.25 10^6/uL (4.00-5.40); WHITE BLOOD COUNT 5.8 10^3/uL (4.0-10.0)
== END ==
LOC: M LABDRAWC 15:25
PROVIDERS: ATTEND Physician Assistant
DX: Z79.899 Other long term (current) drug therapy (principal)

== ENCOUNTER → 2024-12-04 | Outpatient (REF) | payer BC ==
[2024-12-04 10:52] LABS: BASO # 0.1 10^3/uL (0.0-0.2); BASO % 0.9 % (0.0-1.0); EOS # 0.2 10^3/uL (0.0-0.5); HEMATOCRIT 39.2 % (36.0-47.0); HEMOGLOBIN 12.9 g/dl (12.0-15.5); LYMPH # 1.8 10^3/uL (1.5-5.0); LYMPH % 30.8 % (24.0-44.0); MEAN CORPUSCULAR HEMOGLOBIN 29.9 pg (27.0-33.0); MEAN CORPUSCULAR HGB CONC 32.9 g/dl (32.0-36.5); MONO # 0.4 10^3/uL (0.0-0.8); NEUTROPHILS # 3.3 10^3/uL (1.5-8.5); NEUTROPHILS % 58.1 % (36.0-66.0); PLATELET COUNT, AUTOMATED 221 10^3/uL (150-450); RED BLOOD COUNT 4.31 10^6/uL (4.00-5.40); URIC ACID 4.4 MG/DL (3.1-7.8); WHITE BLOOD COUNT 5.7 10^3/uL (4.0-10.0)
[2024-12-04 10:55] LABS: ALBUMIN 3.5 G/DL (3.2-5.2); ALKALINE PHOSPHATASE 56 U/L (35-104); ALT/SGPT 23 U/L (7.0-40); AST/SGOT 14 U/L (<34); BILIRUBIN,TOTAL 0.6 MG/DL (0.3-1.2); BLOOD UREA NITROGEN 14 MG/DL (9-23); C REACTIVE PROTEIN QUANTITATIV < 0.50 MG/DL (<1.0); CALCIUM LEVEL 8.9 MG/DL (8.5-10.1); CARBON DIOXIDE LEVEL 29 MMOL/L (20-31); CHLORIDE LEVEL 108 MMOL/L (98-107); CHOLESTEROL LEVEL 283 MG/DL (<200); CHOLESTEROL RISK RATIO 5.77 (<5); CREATININE FOR GFR 0.74 MG/DL (0.55-1.30); GLOMERULAR FILTRATION RATE > 60.0 (>51); GLUCOSE, FASTING 93 MG/DL (60-100); LDL CHOLESTEROL 211.4 MG/DL (<100); POTASSIUM SERUM 3.9 MMOL/L (3.5-5.1); SODIUM LEVEL 140 MMOL/L (136-145); TRIGLYCERIDES LEVEL 113 MG/DL (<150)
[2024-12-04 10:57] LABS: FREE T4 1.03 NG/DL (0.89-1.76); THYROID STIMULATING HORMONE 1.124 uIU/ML (0.55-4.78)
[2024-12-04 10:58] LABS: RHEUMATOID FACTOR QUANT 18.2 IU/ML (<14)
[2024-12-04 10:59] LABS: ERYTHROCYTE SEDIMENTATION RATE 13 mm/hr (0-30)
[2024-12-04 12:02] LABS: HEMOGLOBIN A1c 5.4 % (4.0-6.0)
== END ==
LOC: M SFHCCLAY 07:47
PROVIDERS: ATTEND Nurse Practitioner Family
DX: R76.8 Other specified abnormal immunological findings in serum (principal); R73.01 Impaired fasting glucose; Z13.220 Encounter for screening for lipoid disorders; Z13.29 Encounter for screening for other suspected endocrine disorder

== ENCOUNTER → 2025-09-03 | Outpatient (REF) | payer BC ==
[2025-09-03 13:02] LABS: APPEARANCE, URINE HAZY (CLEAR); BACTERIA, URINE AUTO 2+ (NEGATIVE); BILIRUBIN, URINE AUTO NEGATIVE (NEGATIVE); BLOOD, URINE BLOOD 3+ (NEGATIVE); GLUCOSE, URINE (UA) AUTO NEGATIVE (NEGATIVE); KETONE, URINE AUTO NEGATIVE (NEGATIVE); LEUKOCYTE ESTERASE, URINE AUTO 3+ (NEGATIVE); NITRITE, URINE AUTO NEGATIVE (NEGATIVE); PROTEIN, URINE AUTO NEGATIVE (NEGATIVE); RBC, URINE AUTO 35 /HPF (0-3); SPECIFIC GRAVITY URINE AUTO 1.011 (1.002-1.035); SQUAMOUS EPITHELIAL CELL UR AU 1 /HPF (0-6); UROBILINOGEN, URINE AUTO 0.2 mg/dL (0.0-2.0); WBC, URINE AUTO TNTC /HPF (0-3)
== END ==
LOC: M LAB REF 11:55
PROVIDERS: ATTEND Physician Assistant
DX: N39.0 Urinary tract infection, site not specified (principal)

== ENCOUNTER → 2025-10-15 | Outpatient (REF) | payer BC ==
[2025-10-15 12:36] LABS: BASO # 0.1 10^3/uL (0.0-0.2); BASO % 0.8 % (0.0-1.0); EOS # 0.1 10^3/uL (0.0-0.5); EOS % 2.0 % (0.0-3.0); LYMPH # 2.4 10^3/uL (1.5-5.0); LYMPH % 37.9 % (24.0-44.0); MONO # 0.4 10^3/uL (0.0-0.8); MONO % 6.4 % (2.0-8.0); NEUTROPHILS # 3.4 10^3/uL (1.5-8.5); NEUTROPHILS % 52.7 % (36.0-66.0); PLATELET COUNT, AUTOMATED 280 10^3/uL (150-450)
[2025-10-15 13:09] LABS: ALT/SGPT 19.0 U/L (7.0-40); AST/SGOT 18.0 U/L (<34); CALCIUM LEVEL 9.0 MG/DL (8.5-10.1); CARBON DIOXIDE LEVEL 29.0 MMOL/L (20-31); CHLORIDE LEVEL 105.0 MMOL/L (98-107); CHOLESTEROL LEVEL 293.0 MG/DL (<200); CHOLESTEROL RISK RATIO 5.72 (<5); CREATININE FOR GFR 0.8 MG/DL (0.55-1.30); FREE T4 1.07 NG/DL (0.89-1.76); GLOMERULAR FILTRATION RATE 85.9 (>51); LDL CHOLESTEROL 216.8 MG/DL (<100); NON-HDL-C 241.8 MG/DL; POTASSIUM SERUM 4.1 MMOL/L (3.5-5.1); SODIUM LEVEL 142.0 MMOL/L (136-145); TRIGLYCERIDES LEVEL 125.0 MG/DL (<150)
[2025-10-15 13:29] LABS: ESTIMATED AVERAGE GLUCOSE 108.0 MG/DL (60-110)
== END ==
LOC: M SFHCCLAY 08:51
PROVIDERS: ATTEND Nurse Practitioner Family
DX: E66.3 Overweight (principal); R73.01 Impaired fasting glucose; N95.1 Menopausal and female climacteric states; Z13.29 Encounter for screening for other suspected endocrine disorder

== ENCOUNTER → 2025-10-27 | Outpatient (REF) | payer BC ==
[2025-10-27 15:57] LABS: C REACTIVE PROTEIN QUANTITATIV < 0.50 MG/DL (<1.0); RHEUMATOID FACTOR QUANT 19.8 IU/ML (<14)
[2025-10-27 15:59] LABS: TOTAL 25(OH) VITAMIN D 47.0 NG/ML (20.0-100.0)
[2025-10-27 16:04] LABS: HEPATITIS B SURFACE ANTIBODY NEGATIVE (POSITIVE)
[2025-10-27 16:38] LABS: HEPATITIS C VIRUS ABY INDEX 0.07 INDEX (<0.8)
== END ==
LOC: M SFHCRHEU 10:17
PROVIDERS: ATTEND Internal Medicine
DX: R76.89 Other specified abnormal immunological findings in serum (principal); L40.9 Psoriasis, unspecified; R53.83 Other fatigue

== ENCOUNTER → 2025-10-29 | Outpatient (REF) | payer BC ==
[2025-10-29 12:40] LABS: APPEARANCE, URINE CLOUDY (CLEAR); BACTERIA, URINE AUTO 1+ (NEGATIVE); BILIRUBIN, URINE AUTO NEGATIVE (NEGATIVE); BLOOD, URINE BLOOD 3+ (NEGATIVE); GLUCOSE, URINE (UA) AUTO NEGATIVE (NEGATIVE); KETONE, URINE AUTO NEGATIVE (NEGATIVE); LEUKOCYTE ESTERASE, URINE AUTO 3+ (NEGATIVE); MUCUS, URINE SMALL (NEGATIVE); NITRITE, URINE AUTO NEGATIVE (NEGATIVE); PROTEIN, URINE AUTO 1+ mg/dL (NEGATIVE); RBC, URINE AUTO 10 /HPF (0-3); SPECIFIC GRAVITY URINE AUTO 1.003 (1.002-1.035); SQUAMOUS EPITHELIAL CELL UR AU 7 /HPF (0-6); UROBILINOGEN, URINE AUTO 0.2 mg/dL (0.0-2.0); WBC, URINE AUTO 95 /HPF (0-3)
== END ==
LOC: M LAB REF 12:08
PROVIDERS: ATTEND Physician Assistant
DX: N39.0 Urinary tract infection, site not specified (principal)